=== PATIENT | female | born 1970 | race Caucasian/White ===

== ENCOUNTER 2018-10-11 09:02 | Emergency (ER) | payer MEDICAID, OTHER ==
[2018-10-11 09:41] LABS: ADD MAN DIFF? NO
[2018-10-11 09:42] LABS: BASOPHIL # 0.1 10^3/ul (0.0-0.1); BASOPHILS % 0.4 % (0.0-2.0); EOSINOPHILS % 0.2 % (0.0-7.0); HEMATOCRIT 33.7 % (37.0-47.0); LYMPHOCYTES # 1.2 10^3/ul (0.8-2.9); LYMPHOCYTES % 7.6 % (15.0-51.0); MEAN CORPUSCULAR HEMOGLOBIN 28.6 pg (29.0-33.0); MEAN CORPUSCULAR HGB CONC 32.6 g/dl (32.0-37.0); MEAN CORPUSCULAR VOLUME 87.5 fl (82.0-101.0); MEAN PLATELET VOLUME 9.6 fl (7.4-10.4); MONOCYTES % 6.1 % (0.0-11.0); NEUTROPHIL # 13.8 10^3/ul (1.6-7.5); NEUTROPHILS % 85.1 % (39.0-77.0); PLATELET COUNT 327 10^3/UL (140-415); RED BLOOD COUNT 3.85 10^6/ul (4.20-5.40); RED CELL DISTRIBUTION WIDTH 13.4 % (11.5-14.5)
[2018-10-11 09:42] LABS: WHITE BLOOD COUNT 16.2 10^3/ul (4.8-10.8)
[2018-10-11] MEDS: KETOROLAC 15 MG INJ IV (09:47)
[2018-10-11] MEDS: ONDANSETRON 4 MG INJ IV (09:47)
[2018-10-11] MEDS: SOD CHLORIDE 0.9% 1,000 ML IV (09:47)
[2018-10-11] MEDS: DICYCLOMINE 20 MG INJ IM (09:51)
[2018-10-11 10:12] LABS: ANION GAP 14 (5-13); BLOOD UREA NITROGEN 5 mg/dl (7-20); CALCIUM 9.1 mg/dl (8.4-10.2); CARBON DIOXIDE 23 mmol/L (21-31); CHLORIDE 98 mmol/L (97-110); CREATININE 0.48 mg/dl (0.44-1.00); Estimated GFR > 60 mL/min (>60); GLUCOSE 309 mg/dl (70-220); POTASSIUM 3.5 mmol/L (3.5-5.1); SODIUM 135 mmol/L (135-144)
== END 2018-10-11 11:38 | disposition home or self-care (01) ==
LOC: E/R 09:02
DX: R11.2 Nausea with vomiting, unspecified (principal); R19.7 Diarrhea, unspecified; R10.84 Generalized abdominal pain; R73.9 Hyperglycemia, unspecified
CPT/HCPCS: 36415; 80048; 81025; 85025; 96372; 96374; 96375; 99284-25

== ENCOUNTER 2018-10-12 21:53 | Inpatient (IN) | payer MEDICAID ==
[2018-10-12] MEDS: ONDANSETRON 4 MG INJ IV (22:53)
[2018-10-12] MEDS: SOD CHLORIDE 0.9% 1,000 ML IV (22:53)
[2018-10-12] MEDS: morphine 4 MG/ML VIAL IV (22:53)
[2018-10-12 23:11] LABS: ADD MAN DIFF? NO
[2018-10-12 23:13] LABS: BASOPHILS % 0.2 % (0.0-2.0); EOSINOPHILS # 0.1 10^3/ul (0.0-0.5); EOSINOPHILS % 0.3 % (0.0-7.0); HEMATOCRIT 33.8 % (37.0-47.0); LYMPHOCYTES # 1.9 10^3/ul (0.8-2.9); LYMPHOCYTES % 11.1 % (15.0-51.0); MEAN CORPUSCULAR HEMOGLOBIN 27.8 pg (29.0-33.0); MEAN CORPUSCULAR HGB CONC 32.5 g/dl (32.0-37.0); MEAN CORPUSCULAR VOLUME 85.6 fl (82.0-101.0); MEAN PLATELET VOLUME 9.6 fl (7.4-10.4); MONOCYTES % 5.8 % (0.0-11.0); NEUTROPHIL # 14.4 10^3/ul (1.6-7.5); PLATELET COUNT 387 10^3/UL (140-415); RED BLOOD COUNT 3.95 10^6/ul (4.20-5.40); RED CELL DISTRIBUTION WIDTH 13.2 % (11.5-14.5)
[2018-10-12 23:13] LABS: WHITE BLOOD COUNT 17.5 10^3/ul (4.8-10.8)
[2018-10-12 23:24] LABS: ADD UMIC YES; UR ASCORBIC ACID NEGATIVE (NEGATIVE); UR BILIRUBIN (Dip) NEGATIVE (NEGATIVE); UR BLOOD (Dip) NEGATIVE (NEGATIVE); UR CLARITY CLEAR (CLEAR); UR COLOR YELLOW (YELLOW); UR GLUCOSE (Dip) 3+ mg/dL (NEGATIVE); UR KETONES (Dip) NEGATIVE (NEGATIVE); UR LEUKOCYTE ESTERASE (Dip) NEGATIVE Leu/ul (NEGATIVE); UR NITRITE (Dip) NEGATIVE (NEGATIVE); UR RBC 2 /HPF (0-5); UR SPECIFIC GRAVITY (Dip) 1.011 (1.003-1.030); UR TOTAL PROTEIN (Dip) 3+ mg/dl (NEGATIVE); UR UROBILINOGEN (Dip) 1+ mg/dL (NEGATIVE); UR WBC 4 /HPF (0-5)
[2018-10-12 23:31] LABS: ALANINE AMINOTRANSFERASE 42 IU/L (13-69); ALBUMIN 3.7 g/dl (3.3-4.9); ALBUMIN/GLOBULIN RATIO 1.05; ALKALINE PHOSPHATASE 230 IU/L (42-121); ANION GAP 15 (5-13); ASPARTATE AMINO TRANSFERASE 36 IU/L (15-46); BILIRUBIN,INDIRECT 0.2 mg/dl (0-1.1); BILIRUBIN,TOTAL 0.2 mg/dl (0.2-1.3); BLOOD UREA NITROGEN 6 mg/dl (7-20); CALCIUM 9.1 mg/dl (8.4-10.2); CARBON DIOXIDE 26 mmol/L (21-31); CHLORIDE 95 mmol/L (97-110); CREATININE 0.47 mg/dl (0.44-1.00); Estimated GFR > 60 mL/min (>60); GLUCOSE 212 mg/dl (70-220); LIPASE 53 U/L (23-300); POTASSIUM 3.2 mmol/L (3.5-5.1); SODIUM 136 mmol/L (135-144); TOTAL PROTEIN 7.2 g/dl (6.1-8.1)
[2018-10-12 23:41] LABS: TROPONIN-I < 0.012 ng/ml (0.000-0.120)
[2018-10-13] MEDS: HYDROmorphONE 0.5 MG/0.5 ML SYG IV (00:14)
[2018-10-13] MEDS ORDERED: SOD CHLORIDE 0.9% 1,000 ML IV (01:18)
[2018-10-13] MEDS ORDERED: NACL 0.9% 3 ML SYG IV (01:30)
[2018-10-13] MEDS: SOD CHLORIDE 0.9% 500 ML IV (01:30)
[2018-10-13 03:04] LABS: GAMMA GLUTAMYL TRANSPEPTIDASE 199 IU/L (0-50)
[2018-10-13 03:06] LABS: LACTIC ACID 1.1 mmol/L (0.5-2.0)
[2018-10-13 03:20] LABS: C-REACTIVE PROTEIN 18.5 mg/dl (0.0-0.9)
[2018-10-13] MEDS: POTASSIUM CHLORIDE 30 MEQ in SOD CHLORIDE 0.45% 1,000 ML IV ×3 (03:39→22:47)
[2018-10-13 04:01] LABS: ERYTHROCYTE SEDIMENTATION RATE 150 mm/Hr (0-20)
[2018-10-13] MEDS ORDERED: VANCOMYCIN IV PER PHARMACY XX (05:00)
[2018-10-13] MEDS ORDERED: PIPER-TAZO 3.375 GM IV (PMX) 100 ML IVPB (05:00)
[2018-10-13] MEDS: PANTOPRAZOLE 40 MG INJ IV (05:06)
[2018-10-13] MEDS: HYDROmorphONE 1 MG/ML SYG IV ×4 (05:06→19:25)
[2018-10-13] MEDS: ONDANSETRON 4 MG INJ IV ×2 (05:06→19:24)
[2018-10-13] MEDS: HYDROmorphONE 0.5 MG/0.5 ML SYG IM (05:33)
[2018-10-13] MEDS: SOD CHLORIDE 0.9% 100 ML (06:08)
[2018-10-13] MEDS: IOHEXOL 300MG/ML 150 ML BTL (06:08)
[2018-10-13] MEDS: PIPER-TAZO 3.375 GM IV (PMX) 100 ML IVPB ×4 (06:40→23:56)
[2018-10-13 07:09] LABS: WHITE BLOOD COUNT 16.7 10^3/ul (4.8-10.8)
[2018-10-13 07:09] LABS: HEMATOCRIT 30.1 % (37.0-47.0); HEMOGLOBIN 9.9 g/dl (12.0-16.0); MEAN CORPUSCULAR HEMOGLOBIN 28.1 pg (29.0-33.0); MEAN CORPUSCULAR HGB CONC 32.9 g/dl (32.0-37.0); MEAN CORPUSCULAR VOLUME 85.5 fl (82.0-101.0); MEAN PLATELET VOLUME 9.4 fl (7.4-10.4); PLATELET COUNT 347 10^3/UL (140-415); RED BLOOD COUNT 3.52 10^6/ul (4.20-5.40); RED CELL DISTRIBUTION WIDTH 13.2 % (11.5-14.5)
[2018-10-13 07:10] LABS: ADD MAN DIFF? YES; POSITIVE DIFF @See below
[2018-10-13 07:21] LABS: HEMOGLOBIN A1C 10.6 % (0-5.9)
[2018-10-13 07:43] LABS: MAGNESIUM 1.5 mg/dl (1.7-2.5)
[2018-10-13 07:45] LABS: ALANINE AMINOTRANSFERASE 39 IU/L (13-69); ALBUMIN 3.2 g/dl (3.3-4.9); ALBUMIN/GLOBULIN RATIO 1.03; ALKALINE PHOSPHATASE 204 IU/L (42-121); ANION GAP 14 (5-13); ASPARTATE AMINO TRANSFERASE 23 IU/L (15-46); BILIRUBIN,INDIRECT 0.2 mg/dl (0-1.1); BILIRUBIN,TOTAL 0.2 mg/dl (0.2-1.3); BLOOD UREA NITROGEN 6 mg/dl (7-20); CALCIUM 8.1 mg/dl (8.4-10.2); CARBON DIOXIDE 26 mmol/L (21-31); CHLORIDE 98 mmol/L (97-110); CREATININE 0.42 mg/dl (0.44-1.00); Estimated GFR > 60 mL/min (>60); GLUCOSE 198 mg/dl (70-220); POTASSIUM 3.2 mmol/L (3.5-5.1); SODIUM 138 mmol/L (135-144); TOTAL PROTEIN 6.3 g/dl (6.1-8.1)
[2018-10-13] MEDS: VANCOMYCIN 1.5 GM in SOD CHLORIDE 0.9% 250 ML IVPB (07:47)
[2018-10-13 07:59] LABS: CHOLESTEROL 131 mg/dl (100-200)
[2018-10-13 07:59] LABS: CHOL/HDL RATIO 3.3 RATIO; HDL CHOLESTEROL 39 mg/dl (34-88); LDL CHOLESTEROL,CALCULATED 55 mg/dl; TRIGLYCERIDES 185 mg/dl (0-149)
[2018-10-13 08:15] LABS: THYROID STIMULATING HORMONE 0.734 MIU/L (0.465-4.680)
[2018-10-13 09:09] LABS: BAND NEUTROPHILS #M 2.8 10^3/ul (0.0-0.6); BAND NEUTROPHILS % (M) 17 % (0-4); HYPOCHROMASIA 1+ (0-0); LYMPHOCYTES #M 1.3 10^3/ul (0.8-2.9); LYMPHOCYTES % (M) 8 % (15-51); MONOCYTE #M 0.6 10^3/ul (0.3-0.9); MONOCYTES % (M) 4 % (0-11); PLATELET ESTIMATE NORMAL; SEG NEUT #M 12.3 10^3/ul (1.6-7.5); SEGMENTED NEUTROPHILS (M) % 71 % (39-77); SMUDGE%M 24 % (0-0)
[2018-10-13] MEDS ORDERED: GLUCOSE GEL 15 GRAM TUBE BUCCAL (11:30)
[2018-10-13] MEDS ORDERED: GLUCAGON 1 MG INJ IM (11:30)
[2018-10-13] MEDS ORDERED: GLUCOSE GEL 15 GRAM TUBE PO ×2 (11:30)
[2018-10-13] MEDS ORDERED: DEXTROSE 50% 50 ML SYRINGE IV ×2 (11:30)
[2018-10-13] MEDS: POTASSIUM CHLORIDE (SR) 20 MEQ TAB PO ×2 (11:54→16:29)
[2018-10-13] MEDS: LORAZEPAM 4 MG/ML VIAL IV (11:54)
[2018-10-13] MEDS: METOCLOPRAMIDE 10 MG INJ IV ×3 (11:55→23:56)
[2018-10-13] MEDS: MAGNESIUM SULFATE 2 GM/50 ML 50 ML IVPB (13:40)
[2018-10-13] MEDS: INSULIN ASPART [NOVOLOG] 3 ML PEN SC ×3 (13:41→21:00)
[2018-10-13] MEDS: HYDROCODONE/APAP (5/325) TAB PO (18:14)
[2018-10-13] MEDS ORDERED: VANCOMYCIN 1.25 GM in SOD CHLORIDE 0.9% 250 ML IVPB (18:30)
[2018-10-14] MEDS: ACCU-CHEK XX (01:48)
[2018-10-14] MEDS: HYDROmorphONE 1 MG/ML SYG IV ×4 (02:25→21:30)
[2018-10-14] MEDS: HYDROCODONE/APAP (5/325) TAB PO ×3 (05:05→16:43)
[2018-10-14 05:32] LABS: ADD MAN DIFF? NO
[2018-10-14 05:41] LABS: WHITE BLOOD COUNT 19.3 10^3/ul (4.8-10.8)
[2018-10-14 05:41] LABS: BASOPHIL # 0.1 10^3/ul (0.0-0.1); BASOPHILS % 0.6 % (0.0-2.0); EOSINOPHILS # 0.1 10^3/ul (0.0-0.5); EOSINOPHILS % 0.6 % (0.0-7.0); HEMATOCRIT 30.4 % (37.0-47.0); HEMOGLOBIN 9.9 g/dl (12.0-16.0); LYMPHOCYTES % 10.5 % (15.0-51.0); MEAN CORPUSCULAR HEMOGLOBIN 28.4 pg (29.0-33.0); MEAN CORPUSCULAR HGB CONC 32.6 g/dl (32.0-37.0); MEAN CORPUSCULAR VOLUME 87.1 fl (82.0-101.0); MEAN PLATELET VOLUME 9.6 fl (7.4-10.4); MONOCYTES % 5.2 % (0.0-11.0); NEUTROPHIL # 15.9 10^3/ul (1.6-7.5); NEUTROPHILS % 82.3 % (39.0-77.0); PLATELET COUNT 371 10^3/UL (140-415); RED BLOOD COUNT 3.49 10^6/ul (4.20-5.40); RED CELL DISTRIBUTION WIDTH 13.6 % (11.5-14.5)
[2018-10-14] MEDS: PIPER-TAZO 3.375 GM IV (PMX) 100 ML IVPB ×3 (05:48→17:29)
[2018-10-14] MEDS: PANTOPRAZOLE 40 MG INJ IV (05:48)
[2018-10-14 06:01] LABS: ANION GAP 11 (5-13); BLOOD UREA NITROGEN 6 mg/dl (7-20); CALCIUM 8.1 mg/dl (8.4-10.2); CARBON DIOXIDE 24 mmol/L (21-31); CHLORIDE 101 mmol/L (97-110); CREATININE 0.47 mg/dl (0.44-1.00); Estimated GFR > 60 mL/min (>60); GLUCOSE 150 mg/dl (70-220); POTASSIUM 4.5 mmol/L (3.5-5.1); SODIUM 136 mmol/L (135-144)
[2018-10-14 06:56] LABS: C-REACTIVE PROTEIN 18.5 mg/dl (0.0-0.9)
[2018-10-14 07:24] LABS: ERYTHROCYTE SEDIMENTATION RATE 122 mm/Hr (0-20)
[2018-10-14] MEDS: INSULIN ASPART [NOVOLOG] 3 ML PEN SC ×4 (07:50→21:00)
[2018-10-14] MEDS: ENOXAPARIN 40 MG/0.4 ML SYG SC (08:37)
[2018-10-14] MEDS: POTASSIUM CHLORIDE 30 MEQ in SOD CHLORIDE 0.45% 1,000 ML IV (09:54)
[2018-10-14] MEDS: DOXYCYCLINE 100 MG TAB PO (20:56)
[2018-10-14] MEDS: DOCUSATE SODIUM 100 MG CAP PO (20:56)
[2018-10-14] MEDS: SOD CHLORIDE 0.45% 1,000 ML IV (22:33)
[2018-10-14] MEDS: ONDANSETRON 4 MG INJ IV (23:05)
[2018-10-15] MEDS: PIPER-TAZO 3.375 GM IV (PMX) 100 ML IVPB ×4 (00:07→18:46)
[2018-10-15] MEDS: HYDROmorphONE 1 MG/ML SYG IV ×4 (01:38→19:40)
[2018-10-15] MEDS: ACCU-CHEK XX (02:00)
[2018-10-15 05:21] LABS: ADD MAN DIFF? NO
[2018-10-15 05:28] LABS: WHITE BLOOD COUNT 12.8 10^3/ul (4.8-10.8)
[2018-10-15 05:28] LABS: BASOPHIL # 0.1 10^3/ul (0.0-0.1); BASOPHILS % 0.5 % (0.0-2.0); EOSINOPHILS # 0.1 10^3/ul (0.0-0.5); EOSINOPHILS % 0.7 % (0.0-7.0); HEMATOCRIT 30.4 % (37.0-47.0); HEMOGLOBIN 9.5 g/dl (12.0-16.0); LYMPHOCYTES # 2.5 10^3/ul (0.8-2.9); LYMPHOCYTES % 19.3 % (15.0-51.0); MEAN CORPUSCULAR HEMOGLOBIN 27.9 pg (29.0-33.0); MEAN CORPUSCULAR HGB CONC 31.3 g/dl (32.0-37.0); MEAN CORPUSCULAR VOLUME 89.1 fl (82.0-101.0); MEAN PLATELET VOLUME 9.5 fl (7.4-10.4); MONOCYTE # 0.7 10^3/ul (0.3-0.9); MONOCYTES % 5.8 % (0.0-11.0); NEUTROPHIL # 9.3 10^3/ul (1.6-7.5); NEUTROPHILS % 72.8 % (39.0-77.0); PLATELET COUNT 379 10^3/UL (140-415); RED BLOOD COUNT 3.41 10^6/ul (4.20-5.40); RED CELL DISTRIBUTION WIDTH 13.7 % (11.5-14.5)
[2018-10-15 06:20] LABS: ANION GAP 6 (5-13); BLOOD UREA NITROGEN 9 mg/dl (7-20); CALCIUM 8.7 mg/dl (8.4-10.2); CARBON DIOXIDE 30 mmol/L (21-31); CHLORIDE 101 mmol/L (97-110); CREATININE 0.58 mg/dl (0.44-1.00); Estimated GFR > 60 mL/min (>60); GLUCOSE 152 mg/dl (70-220); SODIUM 137 mmol/L (135-144)
[2018-10-15] MEDS: PANTOPRAZOLE 40 MG INJ IV (06:27)
[2018-10-15] MEDS: INSULIN ASPART [NOVOLOG] 3 ML PEN SC ×4 (07:50→22:41)
[2018-10-15] MEDS: SOD CHLORIDE 0.45% 1,000 ML IV ×2 (08:07→12:17)
[2018-10-15] MEDS: DOCUSATE SODIUM 100 MG CAP PO ×2 (08:40→21:21)
[2018-10-15] MEDS: DOXYCYCLINE 100 MG TAB PO ×2 (08:40→21:21)
[2018-10-15] MEDS: ENOXAPARIN 40 MG/0.4 ML SYG SC (08:42)
[2018-10-15] MEDS: BUPROPION 100 MG TAB PO (15:47)
[2018-10-15] MEDS: HYDROCODONE/APAP (5/325) TAB PO (21:22)
[2018-10-16] MEDS: PIPER-TAZO 3.375 GM IV (PMX) 100 ML IVPB ×3 (00:33→12:47)
[2018-10-16] MEDS: HYDROmorphONE 1 MG/ML SYG IV (01:58)
[2018-10-16] MEDS: ACCU-CHEK XX (02:00)
[2018-10-16] MEDS: SOD CHLORIDE 0.45% 1,000 ML IV (02:18)
[2018-10-16 04:49] LABS: ADD MAN DIFF? NO
[2018-10-16 04:55] LABS: BASOPHILS % 0.4 % (0.0-2.0); EOSINOPHILS # 0.1 10^3/ul (0.0-0.5); EOSINOPHILS % 1.1 % (0.0-7.0); HEMATOCRIT 26.7 % (37.0-47.0); HEMOGLOBIN 8.4 g/dl (12.0-16.0); LYMPHOCYTES # 2.4 10^3/ul (0.8-2.9); LYMPHOCYTES % 31.2 % (15.0-51.0); MEAN CORPUSCULAR HEMOGLOBIN 28.1 pg (29.0-33.0); MEAN CORPUSCULAR HGB CONC 31.5 g/dl (32.0-37.0); MEAN CORPUSCULAR VOLUME 89.3 fl (82.0-101.0); MEAN PLATELET VOLUME 9.5 fl (7.4-10.4); MONOCYTE # 0.5 10^3/ul (0.3-0.9); MONOCYTES % 6.2 % (0.0-11.0); NEUTROPHIL # 4.5 10^3/ul (1.6-7.5); NEUTROPHILS % 60.2 % (39.0-77.0); PLATELET COUNT 359 10^3/UL (140-415); RED BLOOD COUNT 2.99 10^6/ul (4.20-5.40); RED CELL DISTRIBUTION WIDTH 13.7 % (11.5-14.5)
[2018-10-16 04:55] LABS: WHITE BLOOD COUNT 7.5 10^3/ul (4.8-10.8)
[2018-10-16 05:10] LABS: ANION GAP 10 (5-13); BLOOD UREA NITROGEN 9 mg/dl (7-20); CALCIUM 8.7 mg/dl (8.4-10.2); CARBON DIOXIDE 30 mmol/L (21-31); CHLORIDE 100 mmol/L (97-110); CREATININE 0.48 mg/dl (0.44-1.00); Estimated GFR > 60 mL/min (>60); GLUCOSE 194 mg/dl (70-220); POTASSIUM 4.2 mmol/L (3.5-5.1); SODIUM 140 mmol/L (135-144)
[2018-10-16 05:36] LABS: MAGNESIUM 1.7 mg/dl (1.7-2.5)
[2018-10-16] MEDS: PANTOPRAZOLE (EC) 40 MG TAB PO (06:40)
[2018-10-16] MEDS: INSULIN ASPART [NOVOLOG] 3 ML PEN SC ×2 (07:50→12:33)
[2018-10-16] MEDS: BUPROPION 100 MG TAB PO (09:31)
[2018-10-16] MEDS: DOCUSATE SODIUM 100 MG CAP PO (09:31)
[2018-10-16] MEDS: DOXYCYCLINE 100 MG TAB PO (09:31)
[2018-10-16] MEDS: HYDROCODONE/APAP (5/325) TAB PO (09:47)
[2018-10-16] MEDS: ACETAMINOPHEN 325 MG TAB PO (12:46)
== END 2018-10-16 15:30 | disposition home or self-care (01) | DRG 758 ==
LOC: E/R 21:53 → MS1 10-13 01:15
DX: N71.9 Inflammatory disease of uterus, unspecified (principal); F33.9 Major depressive disorder, recurrent, unspecified; G93.40 Encephalopathy, unspecified; R65.10 Systemic inflammatory response syndrome (SIRS) of non-infectious origin without acute organ dysfunction; E11.65 Type 2 diabetes mellitus with hyperglycemia; E87.6 Hypokalemia; E66.9 Obesity, unspecified; Z68.31 Body mass index [BMI] 31.0-31.9, adult; N93.9 Abnormal uterine and vaginal bleeding, unspecified; D25.9 Leiomyoma of uterus, unspecified; D50.0 Iron deficiency anemia secondary to blood loss (chronic); K76.0 Fatty (change of) liver, not elsewhere classified; R19.7 Diarrhea, unspecified
CPT/HCPCS: 36415; 70553; 71045; 74176; 74177; 76705; 76830; 76856; 80048; 80053; 80061; 81001; 81025; 82962; 82977; 83036; 83605; 83690; 83735; 84443; 84484; 85025; 85651; 86140; 87040; 87086; 87591; 93005; 96374; 96375; 99285-25